=== PATIENT | female | born 1955 | race Caucasian/White ===

== ENCOUNTER 2020-04-05 09:14 | Emergency (ER) | payer MEDICARE, SELFPAY ==
--- NOTE | 2020-04-05 09:29 | DI.RAD.S_ITS ---
PROCEDURE: XR SHOULDER RT MIN 2V INDICATIONS: possible dislocation. TECHNIQUE: 3 views of the shoulder were acquired. COMPARISON: None. FINDINGS: Bones: No fractures or dislocations. There is a well-defined hyperdense focus seen within the right humeral neck that measures 9 mm. Visualized ribs appear intact. Soft tissues: No suspicious soft tissue calcifications. The visualized lung demonstrates an unremarkable appearance. IMPRESSION: No dislocation. No fractures are seen. Likely 9 mm bone island seen within the right humeral neck. In a patient of this age, differential diagnosis also includes sclerotic metastasis, at this is considered to be less likely. Dictated by: Alexx Quinones M.D. on 04/05/2020 at 8:49 Approved by: Alexx Quinones M.D. on 04/05/2020 at 8:50
[2020-04-05 09:30] VITALS: BP 185/99; PULSE 83; RESP 18; TEMP 36.9; O2SAT 99; BMI 21.1
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
[2020-04-05 10:34] VITALS: BP 160/91; PULSE 69; RESP 18; O2SAT 95
== END 2020-04-05 10:35 | disposition home or self-care (01) ==
PROVIDERS: Emergency Provider Emergency Medicine
DX: S46.911A Strain of unspecified muscle, fascia and tendon at shoulder and upper arm level, right arm, initial encounter (principal); D17.21 Benign lipomatous neoplasm of skin and subcutaneous tissue of right arm
CPT/HCPCS: 73030; 99283